=== PATIENT | female | born 1950 | race African-American/Black ===

== ENCOUNTER → 2020-01-11 | Outpatient (CLI) | payer OTHER, MEDICARE ==
[~2020-01-11] MED LIST: ASPIR 8181 MG PO; ATORVASTATIN CA40 MG PO; CHLORTHALIDONE25 MG PO; GRALISE1 EACH; GRALISE300 MG; KLOR-CON 1010 MEQ PO; LABETALOL HCL100 MG PO; LABETALOL HCL200 MG PO; LUNESTA2 MG; LUNESTA3 MG PO; MIRALAX17 GM PO; MOBIC7.5 MG PO; MORPHINE SULFAT15 M3 PO; MS CONTIN15 MG PO; NEURONTIN 300300 M1 PO; NEURONTIN 300M300 M2 PO; POTASSIUM20 PO; PROTONIX40 M1 PO; RED YEAST RICE600 M1 PO; ROXICODONE5 M2 PO; ROXICODONE5 MG PO; SLEEP AID50 MG PO; SLEEPING PILL; TRAMADOL 50 MG50 MG PO; [UNRECOGNIZED DRUG - OTHER]
== END ==
LOC: SJCVC 10:11
PROVIDERS: ATTEND Internal Medicine
DX: I44.0 Atrioventricular block, first degree (principal); I10 Essential (primary) hypertension; E78.5 Hyperlipidemia, unspecified; R53.83 Other fatigue; M15.3 Secondary multiple arthritis; Z79.82 Long term (current) use of aspirin; Z79.899 Other long term (current) drug therapy; Z82.49 Family history of ischemic heart disease and other diseases of the circulatory system; Z87.891 Personal history of nicotine dependence

== ENCOUNTER → 2020-02-11 | Outpatient (CLI) | payer OTHER, MEDICARE | LOC: SJCVCIMAG 02-09 14:09 | PROVIDERS: ATTEND Internal Medicine | DX: I44.0 Atrioventricular block, first degree (principal); R00.0 Tachycardia, unspecified; I49.3 Ventricular premature depolarization; E78.5 Hyperlipidemia, unspecified; I10 Essential (primary) hypertension; Z79.899 Other long term (current) drug therapy; Z87.891 Personal history of nicotine dependence ==